=== PATIENT | male | born 1975 | race Caucasian/White ===

== ENCOUNTER 2017-06-25 09:03 | Emergency (ER) | payer BC ==
[~2017-06-25] VITALS: Ht 170.2 cm; Wt 63.0 kg
[~2017-06-25 09:03] MED LIST: Z.0.NO CURRENT MEDS
[2017-06-25 09:15] VITALS: BP 150/87; PULSE 86; RESP 18; TEMP 98.5; O2SAT 99
[2017-06-25 10:09] LABS: BLOOD, URINE NEG (NEG); GLUCOSE,URINE NEG (NEG); KETONE, URINE NEG (NEG); NITRITE,URINE NEG (NEG)
[2017-06-25 10:16] LABS: COMMENT (UR) CULT NOT INDICATED; CULTURE IF INDICATED CULT NOT INDICATED; METHOD OF COLLECTION CLEAN CATCH; RBC, URINE 0-3 /hpf (0-3); SQUAMOUS EPITHELIAL CELL URINE 0-5 /hpf (0-5); URINE COLOR YELLOW (YELLW/STRAW)
--- NOTE | 2017-06-25 10:35 | PD ---
HPI Chief Complaint: Syncope/Near-Syncope Time Seen by Provider: 10:23 Travel History International Travel<30 days: No Contact w/Intl Traveler<30days: No Traveled to known affect area: No History of Present Illness HPI This is a 41-year-old male who presents to the emergency department with an episode of lightheadedness and dizziness that felt like he was going to pass out that started while he was driving in his car. He said it went away for a minute but then it came back. He says he felt like he was going to lose consciousness and . He denies any associated chest pain or shortness of breath. He says the whole episode lasted for about 15-20 minutes and he still felt a little bit when he was here in the emergency department. He has had episodes like this before but never this long. He has not been ill lately. He does say he's been taking a tyrosine supplement that he's been taking this for a while. He has no history of sudden in his family. 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) Influenza Vaccination: No ?: Not Past Surgical History Abdominal Surgery: No Cardiac Surgery: No Ear Surgery: No Endocrine Surgery: No Eye Surgery: No Genitourinary Surgery: No Gynecologic Surgery: No Oral Surgery: No Thoracic Surgery: No Other Surgery: Yes (thumb) Social History Alcohol Use: No Tobacco Use: No Substance Use: No Allergies-Medications (Allergen,Severity, Reaction): Coded Allergies: No Known Allergies (Verified , 06/25/17) Reported Meds & Prescriptions Reported Meds & Active Scripts Active No Active Prescriptions or Reported Medications Review of Systems Except as stated in HPI: all other systems reviewed are Neg Physical Exam Narrative GENERAL:Well appearing, no acute distress SKIN: Focused skin assessment warm and dry. HEAD: Atraumatic. Normocephalic. EYES: Pupils equal and round. No injection or drainage. ENT: Moist mucous membranes NECK: Trachea midline. CARDIOVASCULAR: Regular rate and rhythm. No murmur appreciated. RESPIRATORY: Clear to auscultation. Breath sounds equal bilaterally. GASTROINTESTINAL: Abdomen soft, non-tender, nondistended. MUSCULOSKELETAL: No obvious deformities. NEUROLOGICAL: Awake and alert. No obvious cranial nerve deficits. Moving all extremities. PSYCHIATRIC: Appropriate mood and affect; insight and judgment normal. Data Data Last Documented VS Vital Signs Date Time Temp Pulse Resp B/P (MAP) Pulse Ox O2 Delivery O2 Flow Rate FiO2 06/25/17 10:56 77 18 115/84 (94) 99 Room Air 06/25/17 09:15 98.5 Orders Orders Urinalysis - C+S If Indicated (06/25/17 10:00) Complete Blood Count With Diff (06/25/17 10:34) Comprehensive Metabolic Panel (06/25/17 10:34) Troponin I (06/25/17 10:34) Magnesium (Mg) (06/25/17 10:34) Sodium Chlor 0.9% 1000 Ml Inj (Ns 1000 M (06/25/17 10:45) B-Type Natriuretic Peptide (06/25/17 10:34) Labs Laboratory Tests Test 06/25/17 10:00 06/25/17 10:35 Urine Collection Type CLEAN CATCH Urine Color YELLOW Urine Turbidity CLEAR Urine pH 7.0 Urine Specific [place] 1.006 Urine Protein NEG mg/dL Urine Glucose (UA) NEG mg/dL Urine Ketones NEG mg/dL Urine Occult Blood NEG Urine Nitrite NEG Urine Bilirubin NEG Urine Leukocyte Esterase NEG Urine RBC 0-3 /hpf Urine Squamous Epithelial Cells 0-5 /hpf Microscopic Urinalysis Comment CULT NOT INDICATED Urine Collection Time 10:00 White Blood Count 5.5 TH/MM3 Red Blood Count 5.27 MIL/MM3 Hemoglobin 15.1 GM/DL Hematocrit 46.5 % Mean Corpuscular Volume 88.2 FL Mean Corpuscular Hemoglobin 28.6 PG Mean Corpuscular Hemoglobin Concent 32.4 % Red Cell Distribution Width 12.3 % Platelet Count 263 TH/MM3 Mean Platelet Volume 7.1 FL Neutrophils (%) (Auto) 58.7 % Lymphocytes (%) (Auto) 30.5 % Monocytes (%) (Auto) 8.8 % Eosinophils (%) (Auto) 1.1 % Basophils (%) (Auto) 0.9 % Neutrophils # (Auto) 3.2 TH/MM3 Lymphocytes # (Auto) 1.7 TH/MM3 Monocytes # (Auto) 0.5 TH/MM3 Eosinophils # (Auto) 0.1 TH/MM3 Basophils # (Auto) 0.0 TH/MM3 CBC Comment DIFF FINAL Differential Comment Blood Urea Nitrogen 17 MG/DL Creatinine 1.00 MG/DL Random Glucose 112 MG/DL Total Protein 7.4 GM/DL Albumin 4.4 GM/DL Calcium Level 8.9 MG/DL Magnesium Level 2.0 MG/DL Alkaline Phosphatase 50 U/L Aspartate Amino Transf (AST/SGOT) 16 U/L Alanine Aminotransferase (ALT/SGPT) 30 U/L Total Bilirubin 0.5 MG/DL Sodium Level 137 MEQ/L Potassium Level 3.9 MEQ/L Chloride Level 103 MEQ/L Carbon Dioxide Level 25.2 MEQ/L Anion Gap 9 MEQ/L Estimat Glomerular Filtration Rate 82 ML/MIN Troponin I LESS THAN 0.02 NG/ML B-Type Natriuretic Peptide 4 PG/ML MDM Medical Decision Making Medical Screen Exam Complete: Yes Emergency Medical Condition: Yes Interpretation(s) Afebrile, no tachycardia, hypertensive No leukocytosis Electrolytes are reassuring Troponin is normal BNP is 4 Urinalysis is negative for infection EKG: Normal sinus rhythm with no ST changes Differential Diagnosis Arrhythmia, electrolyte abnormality, dehydration Narrative Course This is a 41-year-old male who presents to the emergency department having had an episode of near-syncope while he was driving. He was placed on a monitor and an IV was established. EKG is reassuring. One hour of telemetry reading was recorded which was normal. Labs are all unremarkable. Patient was given a liter of IV fluid. I think he can follow-up as an outpatient with his primary care physician regarding these symptoms. I recommended that he go see a lithopone mill worker and have a Holter monitor placed as well as get an echo as he's been told in the past that he may have a leaky valve. Diagnosis Primary Impression: Near syncope Patient Instructions: General Instructions Additional Instructions: If you develop severe chest pain, shortness of breath, sweating, lightheadedness , dizziness or difficulty breathing return to the emergency department immediately. Followup with your primary care physician in 2-3 days if your symptoms are not resolved. Med/Other Pt SpecificInfo: No Change to Meds Scripts No Active Prescriptions or Reported Meds Disposition: 01 DISCHARGE HOME Condition: Stable Keri William MD Jun 25, 2017 10:35
[2017-06-25 10:45] LABS: AUTOMATED NEUTROPHIL # 3.2 TH/MM3 (1.8-7.7); BASOPHIL % 0.9 % (0.0-2.0); EOSINOPHIL # 0.1 TH/MM3 (0-0.4); EOSINOPHIL % 1.1 % (0.0-4.0); HEMATOCRIT 46.5 % (39.0-51.0); HEMO FLAGS DIFF FINAL; LYMPH % 30.5 % (9.0-44.0); LYMPHOCYTE # 1.7 TH/MM3 (1.0-4.8); MEAN CELL VOLUME 88.2 FL (80.0-100.0); MEAN CORPUSCULAR HEMOGLOBIN 28.6 PG (27.0-34.0); MEAN CORPUSCULAR HGB CONC 32.4 % (32.0-36.0); MONO % 8.8 % (0.0-8.0); NEUT % 58.7 % (16.0-70.0); PLATELET COUNT 263 TH/MM3 (150-450); RED BLOOD COUNT 5.27 MIL/MM3 (4.50-5.90); RED CELL DISTRIBUTION WIDTH 12.3 % (11.6-17.2); WHITE BLOOD COUNT 5.5 TH/MM3 (4.0-11.0)
[2017-06-25] MEDS ORDERED: SODIUM CHLOR 0.9% 1000 ML INJ 1,000 ML IV ONE (10:45)
[2017-06-25 10:55] LABS: CHLORIDE 103 MEQ/L (98-107); POTASSIUM 3.9 MEQ/L (3.5-5.1); SODIUM (NA) 137 MEQ/L (136-145)
[2017-06-25 10:56] VITALS: BP 115/84; PULSE 77; RESP 18; O2SAT 99
[2017-06-25 10:58] LABS: ANION GAP 9 MEQ/L (5-15); BICARBONATE 25.2 MEQ/L (21.0-32.0); BLOOD UREA NITROGEN 17 MG/DL (7-18)
[2017-06-25 11:01] LABS: ALT (GPT) 30 U/L (12-78); AST (GOT) 16 U/L (15-37); GLOMERULAR FILTRATION RATE 82 ML/MIN (>89)
[2017-06-25 11:03] LABS: TOTAL BILIRUBIN ADULT 0.5 MG/DL (0.2-1.0)
[2017-06-25 11:04] LABS: ALKALINE PHOSPHATASE 50 U/L (45-117)
--- NOTE | 2017-06-26 11:25 | EKG ---
Date Performed: 06/25/2017 Time Performed: 10:27:13 PTAGE: 41 years EKG: Sinus rhythm POSSIBLE LEFT ATRIAL ENLARGEMENT BORDERLINE ECG NO PREVIOUS TRACING DOCTOR: Adriano Medrano Interpretating Date/Time 06/26/2017 11:22:31
== END 2017-06-25 12:42 | disposition home or self-care (01) ==
LOC: PHED 09:03
DX: R55 Syncope and collapse (principal)
CPT/HCPCS: 80053; 81001; 83735; 83880; 84484; 85025; 93005; 96360; 99284; J7030